=== PATIENT | female | born 1955 | race Two or more races ===

== ENCOUNTER 2020-10-07 16:18 | Inpatient (IN) | payer MEDICARE, MEDICAID ==
[~2020-10-07] VITALS: Ht 165.1 cm; Wt 99.8 kg
[2020-10-07] MEDS ORDERED: SODIUM BICARBONATE 8.4 % INJ 50ML VIAL IV ONE ×3 (16:37→17:14)
[2020-10-07] MEDS ORDERED: EPINEPHrine HCL 250 ML IV ONE ×3 (16:37→22:13)
[2020-10-07] MEDS ORDERED: InsuLIN REG 1unit/0.01ml Soln (100units/ml) ONE ×2 (16:57→17:04)
[2020-10-07] MEDS ORDERED: ATRACURIUM BESYLATE 1,000 MG in D5W 5% 150 ML IV SCH (17:00)
[2020-10-07] MEDS ORDERED: InsuLIN REG 1unit/0.01ml Soln (100units/ml) IV ONE ×2 (17:00→18:00)
[2020-10-07] MEDS ORDERED: SODIUM BICARBONATE 8.4% INJ 50ML SYRINGE IV ONE (17:00)
[2020-10-07] MEDS ORDERED: CALCIUM GLUC 4.65meq/50ml D5AE 50 ML IV ONE (17:00)
[2020-10-07] MEDS ORDERED: DEXTROSE (50%) 50ML SYRG IV ONE (17:00)
[2020-10-07] MEDS ORDERED: FUROSEMIDE 20 MG/2 ML VIAL IV ONE (17:00)
[2020-10-07] MEDS ORDERED: SODIUM ZIRCONIUM CYCL 10 GM PAK PO ONE (17:00)
[2020-10-07] MEDS ORDERED: ALBUTEROL SULF 2.5 MG/0.5ML(0.5%) NEB SOLN NEB ONE (17:00)
[2020-10-07] MEDS ORDERED: PROPOFOL 100 ML IV ONE (17:01)
[2020-10-07] MEDS ORDERED: NOREPINEPHRINE 8 MG/250ML KIT 0 ML IV ONE (17:09)
[2020-10-07] MEDS ORDERED: PROPOFOL 100 ML IV SCH ×2 (17:15→18:00)
[2020-10-07 17:20] VITALS: BP 92/54
[2020-10-07 17:51] LABS: Albumin 2.2 g/dL (3.4-5.0); BUN/Creatinine Ratio 10.8; Calcium 10.5 mg/dL (8.5-10.1); Potassium 3.4 mmol/L (3.5-5.1)
[2020-10-07 17:56] LABS: Bilirubin, Total 0.9 mg/dL (0.2-1.0); Total Protein 5.3 g/dL (6.4-8.2)
[2020-10-07 17:58] LABS: Basophils # (auto) 0 10 ^3/uL (0-0.2); Basophils % (auto) 0.3 % (0.0-2.0); Eosinophils # (auto) 0 10 ^3/uL (0-0.8); Eosinophils % (auto) 0.2 % (0.0-7.0); Hematocrit 32.7 % (36.0-46.0); Hemoglobin 10.9 g/dL (12.2-16.2); Lymphocytes # (auto) 1.3 10 ^3/uL (0.4-5.4); Mean Corpuscular Hemoglobin 35.1 pg (28.0-32.0); Mean Corpuscular Hgb Conc. 33.3 g/dL (32.0-36.0); Mean Corpuscular Volume 105.4 fL (80.0-100.0); Monocytes # (auto) 0.6 10 ^3/uL (0-1.3); Monocytes % (auto) 3.9 % (0.0-12.0); Neutrophils # (auto) 12.2 10 ^3/uL (1.6-8.6); Neutrophils % (auto) 86.6 % (37.0-80.0); Nucleated Red Blood Cells % 0.2 %; Platelet Count (auto) 74 10^3/uL (140-450); Red Cell Distribution Width 16.1 % (11.8-14.3); White Blood Cell 14.1 10^3/uL (4.4-10.8)
[2020-10-07] MEDS ORDERED: DOPamine 1600MCG/ML D5W 250 ML IV ONE ×2 (18:00→22:12)
[2020-10-07] MEDS ORDERED: NOREPINEPHRINE 8 MG/250ML KIT 250 ML IV SCH (18:00)
[2020-10-07] MEDS ORDERED: SODIUM BICARBONATE 50ML VIAL 50 ML in SOD CHL 0.45% 1,000 ML IV ONE (18:00)
[2020-10-07] MEDS ORDERED: VANCOMYCIN PER PHARMACY 0 MG IV SCH (18:15)
[2020-10-07] MEDS ORDERED: PIPERACILLIN-TAZOB 2.25GM 50 ML IV ONE (18:15)
[2020-10-07] MEDS ORDERED: ENOXAPARIN SOD 100 MG/1 ML SYRINGE SC ONE (18:15)
[2020-10-07] MEDS ORDERED: NITROGLYCERIN 0.4 MG SL TAB SL PRN ×2 (18:15→20:45)
[2020-10-07] MEDS ORDERED: MORPHINE SULF INJ 2 MG/ML SYRINGE 1ML IV PRN ×2 (18:15→20:45)
[2020-10-07] MEDS ORDERED: DEXTROSE (50%) 50ML SYRG IV PRN ×2 (18:30→20:00)
[2020-10-07] MEDS ORDERED: INSU100I4 SC (19:05)
[2020-10-07] MEDS ORDERED: HYDR-531 PO (19:05)
[2020-10-07] MEDS ORDERED: BRIM0.2S17 EACHEYE (19:05)
[2020-10-07] MEDS ORDERED: DORZ2SOL18 LEFTEYE (19:05)
[2020-10-07] MEDS ORDERED: TOBRSUS35 RIGHTEYE (19:05)
[2020-10-07] MEDS ORDERED: INSUINJ37 SC (19:05)
[2020-10-07] MEDS ORDERED: LEVO75TA6 PO (19:05)
[2020-10-07] MEDS ORDERED: TACR0.5C3 PO (19:05)
[2020-10-07] MEDS ORDERED: MAGN400T40 PO (19:06)
[2020-10-07] MEDS ORDERED: CALC0.25 PO (19:07)
[2020-10-07] MEDS ORDERED: ACETAMINOPHEN 325 MG TAB PO PRN (19:45)
[2020-10-07] MEDS ORDERED: VASOPRESSIN 50 UNITS in D5W 5% 247.5 ML IV SCH (19:45)
[2020-10-07 19:49] LABS: INR 1.46 (0.9-1.15)
[2020-10-07 19:50] LABS: Partial Thromboplastin Time 124.6 sec (23.0-31.2)
[2020-10-07] MEDS ORDERED: PANTOPRAZOLE 40 MG/10 ML VIAL INJ IV SCH ×3 (20:00→22:00)
[2020-10-07] MEDS ORDERED: D5W/SOD CHLO 0.9% 1,000 ML IV SCH (20:00)
[2020-10-07] MEDS ORDERED: PANTOPRAZOLE 40 MG/10 ML VIAL INJ IV ONE ×2 (20:00→20:15)
[2020-10-07] MEDS ORDERED: METOPROLOL TARTRATE 1MG/1ML-5ML VIAL IV PRN (20:00)
[2020-10-07] MEDS ORDERED: SUCRALFATE 1 GM/10 ML ORAL SUSP PO ONE (20:00)
[2020-10-07 20:30] VITALS: BP 88/44
[2020-10-07] MEDS ORDERED: ONDANSETRON HCL 4 MG/2 ML VIAL IV PRN (20:45)
[2020-10-07] MEDS ORDERED: DOCUSATE SOD 100 MG CAP PO PRN (20:45)
[2020-10-07] MEDS ORDERED: DORZOLAMIDE HCL 2% OPTH(EYE) SOL 10ML EACHEYE ONE (20:45)
[2020-10-07] MEDS ORDERED: ALUM & MAG HYDROX-SIMETH LIQ(MAALOX) 30 ML PO PRN (20:45)
[2020-10-07] MEDS ORDERED: VANCOMYCIN 1GM/250ML 250 ML IV ONE (21:00)
[2020-10-07] MEDS ORDERED: PHYTONADIONE (VIT K)10 MG/ML 1ML VIAL SUBCUT ONE (21:00)
[2020-10-07] MEDS ORDERED: PANTOPRAZOLE 40mg/50ML NS AE 50 ML IV SCH (21:15)
[2020-10-07] MEDS ORDERED: ACETAMINOPHEN 650 MG RECT SUPP PR PRN (21:15)
[2020-10-07 21:35] VITALS: BP 78/57
[2020-10-07] MEDS ORDERED: TACROLIMUS 0.5 MG CAP PO SCH (22:00)
[2020-10-07] MEDS ORDERED: MAGNESIUM OXIDE 400 MG TAB PO SCH (22:00)
[2020-10-07] MEDS ORDERED: ACCU-CHEK COMFORT CURVE STRIP VI SCH (22:00)
[2020-10-07] MEDS ORDERED: InsuLIN REG 1unit/0.01ml Soln (100units/ml) SC SCH (22:00)
[2020-10-07] MEDS ORDERED: DORZOLAMIDE HCL 2% OPTH(EYE) SOL 10ML EACHEYE SCH (22:00)
[2020-10-07] MEDS ORDERED: ENOXAPARIN SOD 100 MG/1 ML SYRINGE SC SCH (22:00)
[2020-10-07 22:02] LABS: Hemoglobin 12.1 g/dL (12.2-16.2)
[2020-10-07 22:04] LABS: Hematocrit 38.3 % (36.0-46.0); Mean Corpuscular Hemoglobin 34.8 pg (28.0-32.0); Mean Corpuscular Hgb Conc. 31.6 g/dL (32.0-36.0); Mean Corpuscular Volume 110.2 fL (80.0-100.0); Platelet Count (auto) 84 10^3/uL (140-450); Red Blood Cells 3.47 10^6/uL (4.0-5.20); Red Cell Distribution Width 17.3 % (11.8-14.3); White Blood Cell 20.6 10^3/uL (4.4-10.8)
[2020-10-07 22:14] LABS: Basophils % (manual) 0 (0.0-2.0); Blast Cells 0; Eosinophils % (manual) 0 (0-7); Myelocytes % 0; Promyelocytes % 0; Reactive Lymphocytes 0
[2020-10-07 22:24] LABS: Potassium 3.8 mmol/L (3.5-5.1)
[2020-10-07 22:29] LABS: BUN/Creatinine Ratio 10.1
[2020-10-07] MEDS ORDERED: VASOPRESSIN 20 UNIT/ML ONE (22:40)
[2020-10-07 22:42] LABS: Band Neutrophils % (manual) 20; Lymphocytes % (manual) 7 (10.0-50.0); Metamyelocytes % 1; Monocytes % (manual) 5 (0-12)
[2020-10-07] MEDS ORDERED: ATROPINE SULFATE 1 MG/1 ML VIAL ONE (22:46)
[2020-10-08] MEDS ORDERED: ACCU-CHEK COMFORT CURVE STRIP VI SCH
[2020-10-08] MEDS ORDERED: AMIODARONE HCL (50 MG/ ML) 3 ML VIAL IV ONE (02:59)
[2020-10-08] MEDS ORDERED: CALCIUM CHLOR(10%) 100MG/ML 10ML SYRINGE IV ONE (02:59)
[2020-10-08] MEDS ORDERED: DOPamine 1600mCg/ml 400MG/250ml NSorD5 KIT/BAG IV ONE (02:59)
[2020-10-08] MEDS ORDERED: EPINEPHrine HCL 1 MG/10 ML SYRG IV ONE ×2 (02:59)
[2020-10-08] MEDS ORDERED: ATROPINE SULF 1 MG/10ml SYR IV ONE (02:59)
[2020-10-08] MEDS ORDERED: SODIUM BICARBONATE 8.4% INJ 50ML SYRINGE IV ONE ×2 (02:59)
[2020-10-08] MEDS ORDERED: PIPERACILLIN-TAZOB 2.25GM 50 ML IV SCH (06:00)
[2020-10-08] MEDS ORDERED: InsuLIN REG 1unit/0.01ml Soln (100units/ml) SC SCH ×2 (07:00)
[2020-10-08] MEDS ORDERED: SUCRALFATE 1 GM/10 ML ORAL SUSP PO SCH (07:00)
[2020-10-08] MEDS ORDERED: LEVOTHYROXINE SODIUM 25 MCG TAB PO SCH (07:00)
[2020-10-08] MEDS ORDERED: PANTOPRAZOLE 40 MG/10 ML VIAL INJ IV SCH (10:00)
[2020-10-08] MEDS ORDERED: CALCITRIOL 0.25 MCG CAP PO SCH (10:00)
== END 2020-10-08 03:00 | disposition expired | DRG 871 ==
LOC: EDBD 16:18 → ER 16:18 → TELE 16:19 → ICU WEST 18:57
PROVIDERS: ADMIT Hospitalist; ATTEND Hospitalist
PROC: 02H633Z Insertion of Infusion Device into Right Atrium, Percutaneous Approach (ICD-10-PCS; principal; 2020-10-07)
PROC: 4A143B0 Monitoring of Venous Pressure, Central, Percutaneous Approach (ICD-10-PCS; 2020-10-07)
PROC: 5A1935Z Respiratory Ventilation, Less than 24 Consecutive Hours (ICD-10-PCS; 2020-10-07)
PROC: 0BH17EZ Insertion of Endotracheal Airway into Trachea, Via Natural or Artificial Opening (ICD-10-PCS; 2020-10-07)
DX: A41.9 Sepsis, unspecified organism (principal); J96.01 Acute respiratory failure with hypoxia; N18.6 End stage renal disease; E43 Unspecified severe protein-calorie malnutrition; G93.41 Metabolic encephalopathy; R65.21 Severe sepsis with septic shock; J18.9 Pneumonia, unspecified organism; D68.4 Acquired coagulation factor deficiency; K92.2 Gastrointestinal hemorrhage, unspecified; I12.0 Hypertensive chronic kidney disease with stage 5 chronic kidney disease or end stage renal disease; Z94.4 Liver transplant status; I46.9 Cardiac arrest, cause unspecified; E87.5 Hyperkalemia; E11.22 Type 2 diabetes mellitus with diabetic chronic kidney disease; I48.91 Unspecified atrial fibrillation; D64.9 Anemia, unspecified; E66.9 Obesity, unspecified; E78.5 Hyperlipidemia, unspecified; Z99.2 Dependence on renal dialysis; Z91.041 Radiographic dye allergy status; Z20.828 Contact with and (suspected) exposure to other viral communicable diseases
CPT/HCPCS: 36415; 36556; 36600; 51702; 70450; 71045; 80048; 80053; 80061; 82805; 82962; 83036; 84132; 84484; 85007; 85025; 85027; 85610; 85730; 86850; 86900; 86901; 87040; 87077; 87186; 87426; 93005; 94002; 96365; 96366; 96367; 96368; 96375; 99291; C9113; G0378; J0171; J0461; J1815; J2543; J2704; J3430; J7060